=== PATIENT | female | born 1945 | race Caucasian/White ===

== ENCOUNTER → 2024-08-23 11:28 | Outpatient (REF) | payer MEDICARE, OTHER, SELFPAY | LOC: DHCBC/DCA 11:28 | PROVIDERS: ATTENDING PHYSICIAN Internal Medicine; FAMILY PHYSICIAN Family Medicine | DX: I49.3 Ventricular premature depolarization (principal); I10 Essential (primary) hypertension; I35.1 Nonrheumatic aortic (valve) insufficiency; R94.31 Abnormal electrocardiogram [ECG] [EKG] | CPT/HCPCS: 78452; 93017; A9500; J2785 ==

== ENCOUNTER → 2024-09-12 10:00 | Outpatient (REF) | payer MEDICARE, OTHER, SELFPAY | LOC: RCS 10:00 | PROVIDERS: ATTENDING PHYSICIAN Internal Medicine; FAMILY PHYSICIAN Family Medicine | DX: I49.3 Ventricular premature depolarization (principal); I10 Essential (primary) hypertension; I35.1 Nonrheumatic aortic (valve) insufficiency | CPT/HCPCS: 93306 ==

== ENCOUNTER → 2024-09-15 08:08 | Outpatient (REF) | payer MEDICARE, OTHER, SELFPAY | LOC: RCS 08:08 | PROVIDERS: ATTENDING PHYSICIAN Internal Medicine; FAMILY PHYSICIAN Family Medicine | DX: I49.3 Ventricular premature depolarization (principal); I10 Essential (primary) hypertension; I35.1 Nonrheumatic aortic (valve) insufficiency | CPT/HCPCS: 93225; 93226 ==

== ENCOUNTER → 2024-12-26 13:10 | Outpatient (REF) | payer MEDICARE, OTHER, SELFPAY | LOC: DHSLP 13:10 | PROVIDERS: ATTENDING PHYSICIAN Internal Medicine Critical Care Medicine | DX: G47.33 Obstructive sleep apnea (adult) (pediatric) (principal) | CPT/HCPCS: 95800 ==

== ENCOUNTER → 2025-01-20 11:01 | Outpatient (REF) | payer MEDICARE, OTHER, SELFPAY | LOC: HWWDC 11:01 | PROVIDERS: ATTENDING PHYSICIAN Obstetrics & Gynecology; FAMILY PHYSICIAN Family Medicine | DX: Z12.31 Encounter for screening mammogram for malignant neoplasm of breast (principal) | CPT/HCPCS: 77063; 77067 ==

== ENCOUNTER → 2025-01-26 09:29 | Outpatient (REF) | payer MEDICARE, OTHER, SELFPAY | LOC: WDC 09:29 | PROVIDERS: ATTENDING PHYSICIAN Obstetrics & Gynecology; FAMILY PHYSICIAN Family Medicine | DX: R92.8 Other abnormal and inconclusive findings on diagnostic imaging of breast (principal) | CPT/HCPCS: 76642 ==

== ENCOUNTER → 2025-02-03 11:17 | Outpatient (REF) | payer MEDICARE, OTHER, SELFPAY ==
--- NOTE | 2025-02-03 14:47 | OID.BR.INTR ---
[facility] Breast Navigator - Initial
- -
Date of Contact: 02/03/25
Met with patient. Patient given written information on navigator service available at [facility]. Will follow up as needed per protocol.
== END ==
LOC: WDC 11:17
PROVIDERS: ATTENDING PHYSICIAN Obstetrics & Gynecology; FAMILY PHYSICIAN Family Medicine
DX: N63.21 Unspecified lump in the left breast, upper outer quadrant (principal)
CPT/HCPCS: 88305; 19083; A4648

== ENCOUNTER → 2025-02-24 08:38 | Outpatient (REF) | payer MEDICARE, OTHER, SELFPAY | LOC: RAD 08:38 | PROVIDERS: ATTENDING PHYSICIAN Surgery; FAMILY PHYSICIAN Family Medicine | DX: K43.2 Incisional hernia without obstruction or gangrene (principal) | CPT/HCPCS: 74177; Q9967 ==

== ENCOUNTER → 2025-03-09 10:28 | Outpatient (REF) | payer MEDICARE, OTHER, SELFPAY ==
--- NOTE | 2025-03-09 11:58 | CARDSERVDEF ---
Echocardiogram with Definity completed after protocol screening completed. Allergies verified.
Patent IV site: _Left forearm 22 G PC by [facility] IV Team____
IV site flushed with 0.9% NaCl pre and post administration.
Diluted bolus method utilized to enhance visualization of ventricular aguero.
Total volume given: _3___ mL
Patient tolerated all procedures well without complications.
Heplock D/C ed at 1156, site clear, no redness, no edema. Pressure held, no bleeding, 2x2 applied and taped. Pt offers no complaints.
== END ==
LOC: RCS 10:28
PROVIDERS: ATTENDING PHYSICIAN Internal Medicine Hematology & Oncology; FAMILY PHYSICIAN Family Medicine
DX: I26.94 Multiple subsegmental thrombotic pulmonary emboli without acute cor pulmonale (principal); D68.69 Other thrombophilia; C50.112 Malignant neoplasm of central portion of left female breast; R06.2 Wheezing
CPT/HCPCS: 93306; Q9957

== ENCOUNTER → 2025-03-15 10:53 | Outpatient (REF) | payer MEDICARE, OTHER, SELFPAY | LOC: PET 10:53 | PROVIDERS: ATTENDING PHYSICIAN Internal Medicine Hematology & Oncology | DX: C50.112 Malignant neoplasm of central portion of left female breast (principal) | CPT/HCPCS: 78815; A9552 ==

== ENCOUNTER 2025-03-16 06:19 | Day surgery (SDC) | payer MEDICARE, OTHER, SELFPAY ==
[2025-03-16 08:40] VITALS: BMI 25.4
[2025-03-16 08:41] VITALS: BMI 25.4
[2025-03-16 08:42] VITALS: BP 163/85
[2025-03-16] MEDS: NSS 1000 IV (08:45)
[2025-03-16 10:33] VITALS: BP 127/71
[2025-03-16 10:45] VITALS: BP 136/74
--- NOTE | 2025-03-16 10:50 | W.IMMPOSTOP ---
Surgical Immed Post Op Note
-
Primary Surgeon: Fredis
Assisting Surgeon: None
Pre-op Diagnosis: Left breast ca
Post-op Diagnosis: Same
Procedure Performed: Insertion right portacath
Anesthesia Type: TIVA
Specimen / Cultures: None
Estimated Blood Loss: 4cc
Complications: None
one
--- NOTE | 2025-03-16 10:51 | OR.RPT ---
Operative Report
Operative Report
Date of surgery: 03/16/2025
Surgeon: Fredis
Pre-op diagnosis: Left breast carcinoma
Post-Op diagnosis: Same
Procedure: Insertion right Port-A-Cath
The patient is a 79-year-old female with left breast carcinoma who presents for right portacath insertion for the administration of neoadjuvant chemotherapy.
The patient was prepped in the same-day surgical services unit. DVT and antibiotic prophylaxis were provided and she was taken to the operating room. With shoulder roll in place in the supine position, intravenous sedation was delivered. The left
chest and neck were prepped and draped in the usual sterile fashion. All team members were present and performed an appropriate timeout procedure
Tissues were anesthetized with 1% lidocaine plain and the patient was placed in Trendelenburg position. Via Seldinger technique, the left subclavian vein was entered percutaneously. A guidewire was advanced under superior vena cava was noted to be
in good position in the superior vena cava. Inferior to the exit site of the guidewire, a subcutaneous pocket was fashioned sharply and with the cautery.
A low-profile single-lumen port flushed with heparinized saline was placed in the pocket. The catheter was securely attached with the hub and passed to the exit site of the guidewire. This was cut to a length of 19 cm. Under fluoroscopic guidance
the
guidewire tract was dilated. Dilator and sheath were passed over the wire. Dilator and wire were removed and the catheter passed easily into the tear-away sheath which was removed. Good position of the catheter was noted in the superior vena
cava. The catheter aspirated and flushed well. The patient was taken out of Trendelenburg position. Marcaine 0.5% plain was instilled into all tissues. The port was secured to subcutaneous tissue using simple interrupted 3-0 plain through an
anchoring site. Skin was closed using simple interrupted 3-0 plain on subcutaneous tissue and skin was closed with a running subcuticular 4 Monocryl.
Surgical glue and a sterile compressive dressing were applied. All sponge needle and instrument counts were correct and the patient was transferred to same-day surgical services where a stat portable chest x-ray will be obtained. ([id number])
[2025-03-16 11:00] VITALS: BP 130/78
[2025-03-16 11:15] VITALS: BP 140/76
== END 2025-03-16 11:48 | disposition home or self-care (01) ==
LOC: SDS 06:19
PROVIDERS: ATTENDING PHYSICIAN Surgery
DX: C50.912 Malignant neoplasm of unspecified site of left female breast (principal)
CPT/HCPCS: 36561; 71045; 76000; 93005; C1788

== ENCOUNTER → 2025-04-07 10:01 | Outpatient (REF) | payer MEDICARE, OTHER, SELFPAY ==
[2025-04-07 12:02] LABS: Hematocrit 38.9 % (37.0-47.0); Hemoglobin 12.7 g/dL (12.0-16.0); Mean Corp Hgb Conc. 32.6 g/dL (33.0-37.0); Mean Corpuscular Volume 92.6 fL (81.0-99.0); Nucleated Red Blood Cells % 0 %; Platelet Count 172 10^3/uL (130-400); Red Cell Dist. Width 12.7 % (11.5-14.5)
[2025-04-07 13:02] LABS: ALT (SGPT) 47 U/L (0-35); AST (SGOT) 34 U/L (14-36); Albumin 4.4 g/dl (3.5-5.0); Alkaline Phosphatase 88 U/L (38-126); Blood Urea Nitrogen 21 mg/dl (7-17); Calcium 9.1 mg/dl (8.4-10.2); Carbon Dioxide 25 mmol/L (22-30); Chloride 106 mmol/L (98-107); Glucose 139 mg/dl (70-99); Magnesium 2.0 mg/dl (1.6-2.3); Potassium 4.0 mmol/L (3.5-5.1); Sodium 138 mmol/L (135-145); Total Protein 6.8 g/dl (6.3-8.2); eGFR > 60.00
== END ==
LOC: REG 10:01
PROVIDERS: ATTENDING PHYSICIAN Internal Medicine Hematology & Oncology; FAMILY PHYSICIAN Family Medicine
DX: I26.94 Multiple subsegmental thrombotic pulmonary emboli without acute cor pulmonale (principal); D68.69 Other thrombophilia; C50.112 Malignant neoplasm of central portion of left female breast
CPT/HCPCS: 36415; 80053; 83735; 85025

== ENCOUNTER → 2025-04-24 08:50 | Outpatient (REF) | payer MEDICARE, OTHER, SELFPAY ==
[2025-04-24 10:37] LABS: ALT (SGPT) 96 U/L (0-35); AST (SGOT) 48 U/L (14-36); Albumin 3.9 g/dl (3.5-5.0); Alkaline Phosphatase 178 U/L (38-126); Blood Urea Nitrogen 18 mg/dl (7-17); Calcium 8.9 mg/dl (8.4-10.2); Carbon Dioxide 32 mmol/L (22-30); Chloride 103 mmol/L (98-107); Glucose 103 mg/dl (70-99); Magnesium 2.1 mg/dl (1.6-2.3); Potassium 3.0 mmol/L (3.5-5.1); Sodium 140 mmol/L (135-145); Total Protein 6.1 g/dl (6.3-8.2); eGFR > 60.00
[2025-04-24 11:07] LABS: Hematocrit 32.0 % (37.0-47.0); Hemoglobin 10.5 g/dL (12.0-16.0); Mean Corp Hgb Conc. 32.8 g/dL (33.0-37.0); Mean Corpuscular Volume 91.2 fL (81.0-99.0); Nucleated Red Blood Cells % 0 %; Platelet Count 108 10^3/uL (130-400); Red Cell Dist. Width 13.5 % (11.5-14.5)
== END ==
LOC: REG 08:50
PROVIDERS: ATTENDING PHYSICIAN Internal Medicine Hematology & Oncology; FAMILY PHYSICIAN Family Medicine
DX: I26.94 Multiple subsegmental thrombotic pulmonary emboli without acute cor pulmonale (principal); D68.69 Other thrombophilia; C50.112 Malignant neoplasm of central portion of left female breast
CPT/HCPCS: 36415; 80053; 83735; 85025

== ENCOUNTER → 2025-05-01 08:35 | Outpatient (REF) | payer MEDICARE, OTHER, SELFPAY ==
[2025-05-01 09:29] LABS: Hematocrit 32.5 % (37.0-47.0); Hemoglobin 10.8 g/dL (12.0-16.0); Mean Corp Hgb Conc. 33.2 g/dL (33.0-37.0); Mean Corpuscular Volume 90.8 fL (81.0-99.0); Nucleated Red Blood Cells % 0 %; Platelet Count 244 10^3/uL (130-400); Red Cell Dist. Width 13.2 % (11.5-14.5)
[2025-05-01 10:17] LABS: ALT (SGPT) 92 U/L (0-35); AST (SGOT) 34 U/L (14-36); Albumin 4.4 g/dl (3.5-5.0); Alkaline Phosphatase 114 U/L (38-126); Blood Urea Nitrogen 20 mg/dl (7-17); Calcium 9.3 mg/dl (8.4-10.2); Carbon Dioxide 27 mmol/L (22-30); Chloride 102 mmol/L (98-107); Glucose 114 mg/dl (70-99); Magnesium 1.9 mg/dl (1.6-2.3); Potassium 3.8 mmol/L (3.5-5.1); Sodium 137 mmol/L (135-145); Total Protein 6.6 g/dl (6.3-8.2); eGFR > 60.00
== END ==
LOC: REG 08:35
PROVIDERS: ATTENDING PHYSICIAN Internal Medicine Hematology & Oncology; FAMILY PHYSICIAN Family Medicine
DX: I26.94 Multiple subsegmental thrombotic pulmonary emboli without acute cor pulmonale (principal); D68.69 Other thrombophilia; C50.112 Malignant neoplasm of central portion of left female breast
CPT/HCPCS: 36415; 80053; 83735; 85025

== ENCOUNTER → 2025-05-16 12:10 | Outpatient (REF) | payer MEDICARE, OTHER, SELFPAY ==
[2025-05-16 13:11] LABS: Hematocrit 31.7 % (37.0-47.0); Hemoglobin 10.3 g/dL (12.0-16.0); Mean Corp Hgb Conc. 32.5 g/dL (33.0-37.0); Mean Corpuscular Volume 94.1 fL (81.0-99.0); Nucleated Red Blood Cells % 0 %; Platelet Count 105 10^3/uL (130-400); Red Cell Dist. Width 16.5 % (11.5-14.5)
[2025-05-16 13:56] LABS: ALT (SGPT) 68 U/L (0-35); AST (SGOT) 42 U/L (14-36); Albumin 4.2 g/dl (3.5-5.0); Alkaline Phosphatase 213 U/L (38-126); Blood Urea Nitrogen 16 mg/dl (7-17); Calcium 8.8 mg/dl (8.4-10.2); Carbon Dioxide 30 mmol/L (22-30); Chloride 102 mmol/L (98-107); Glucose 183 mg/dl (70-99); Magnesium 1.9 mg/dl (1.6-2.3); Potassium 2.8 mmol/L (3.5-5.1); Sodium 139 mmol/L (135-145); Total Protein 6.2 g/dl (6.3-8.2); eGFR > 60.00
== END ==
LOC: REG 12:10
PROVIDERS: ATTENDING PHYSICIAN Internal Medicine Hematology & Oncology; FAMILY PHYSICIAN Family Medicine
DX: I26.94 Multiple subsegmental thrombotic pulmonary emboli without acute cor pulmonale (principal); D68.69 Other thrombophilia; C50.112 Malignant neoplasm of central portion of left female breast; K31.84 Gastroparesis
CPT/HCPCS: 36415; 80053; 83735; 85025

== ENCOUNTER → 2025-05-23 12:25 | Outpatient (REF) | payer MEDICARE, OTHER, SELFPAY ==
[2025-05-23 13:16] LABS: Hematocrit 33.0 % (37.0-47.0); Hemoglobin 11.0 g/dL (12.0-16.0); Mean Corp Hgb Conc. 33.3 g/dL (33.0-37.0); Mean Corpuscular Volume 93.0 fL (81.0-99.0); Nucleated Red Blood Cells % 0 %; Platelet Count 215 10^3/uL (130-400); Red Cell Dist. Width 16.1 % (11.5-14.5)
[2025-05-23 14:12] LABS: ALT (SGPT) 53 U/L (0-35); AST (SGOT) 30 U/L (14-36); Albumin 4.6 g/dl (3.5-5.0); Alkaline Phosphatase 130 U/L (38-126); Blood Urea Nitrogen 18 mg/dl (7-17); Calcium 9.4 mg/dl (8.4-10.2); Carbon Dioxide 27 mmol/L (22-30); Chloride 103 mmol/L (98-107); Glucose 140 mg/dl (70-99); Magnesium 1.9 mg/dl (1.6-2.3); Potassium 3.4 mmol/L (3.5-5.1); Sodium 136 mmol/L (135-145); Total Protein 6.7 g/dl (6.3-8.2); eGFR > 60.00
== END ==
LOC: REG 12:25
PROVIDERS: ATTENDING PHYSICIAN Internal Medicine Hematology & Oncology; FAMILY PHYSICIAN Family Medicine
DX: I26.94 Multiple subsegmental thrombotic pulmonary emboli without acute cor pulmonale (principal); D68.69 Other thrombophilia; C50.112 Malignant neoplasm of central portion of left female breast
CPT/HCPCS: 36415; 80053; 83735; 85025

== ENCOUNTER → 2025-06-16 09:06 | Outpatient (REF) | payer MEDICARE, OTHER, SELFPAY ==
[2025-06-16 10:01] LABS: Hematocrit 33.5 % (37.0-47.0); Hemoglobin 11.3 g/dL (12.0-16.0); Mean Corp Hgb Conc. 33.7 g/dL (33.0-37.0); Mean Corpuscular Volume 98.0 fL (81.0-99.0); Nucleated Red Blood Cells % 0 %; Platelet Count 214 10^3/uL (130-400); Red Cell Dist. Width 16.4 % (11.5-14.5)
[2025-06-16 10:21] LABS: ALT (SGPT) 43 U/L (0-35); AST (SGOT) 28 U/L (14-36); Albumin 4.3 g/dl (3.5-5.0); Alkaline Phosphatase 134 U/L (38-126); Blood Urea Nitrogen 16 mg/dl (7-17); Calcium 9.3 mg/dl (8.4-10.2); Carbon Dioxide 28 mmol/L (22-30); Chloride 102 mmol/L (98-107); Glucose 211 mg/dl (70-99); Magnesium 1.8 mg/dl (1.6-2.3); Potassium 3.1 mmol/L (3.5-5.1); Sodium 138 mmol/L (135-145); Total Protein 6.7 g/dl (6.3-8.2); eGFR > 60.00
== END ==
LOC: REG 09:06
PROVIDERS: ATTENDING PHYSICIAN Internal Medicine Hematology & Oncology; FAMILY PHYSICIAN Family Medicine
DX: I26.94 Multiple subsegmental thrombotic pulmonary emboli without acute cor pulmonale (principal); D68.69 Other thrombophilia; C50.112 Malignant neoplasm of central portion of left female breast
CPT/HCPCS: 36415; 80053; 83735; 85025

== ENCOUNTER → 2025-06-23 11:12 | Outpatient (REF) | payer MEDICARE, OTHER, SELFPAY ==
[2025-06-23 11:54] LABS: Hematocrit 35.8 % (37.0-47.0); Hemoglobin 11.8 g/dL (12.0-16.0); Mean Corp Hgb Conc. 33.0 g/dL (33.0-37.0); Mean Corpuscular Volume 98.6 fL (81.0-99.0); Nucleated Red Blood Cells % 0 %; Platelet Count 199 10^3/uL (130-400); Red Cell Dist. Width 15.2 % (11.5-14.5)
[2025-06-23 12:20] LABS: Albumin 4.6 g/dl (3.5-5.0)
[2025-06-23 12:40] LABS: ALT (SGPT) 42 U/L (0-35); AST (SGOT) 28 U/L (14-36); Alkaline Phosphatase 108 U/L (38-126); Blood Urea Nitrogen 17 mg/dl (7-17); Calcium 9.3 mg/dl (8.4-10.2); Carbon Dioxide 25 mmol/L (22-30); Chloride 105 mmol/L (98-107); Glucose 138 mg/dl (70-99); Magnesium 1.8 mg/dl (1.6-2.3); Potassium 3.8 mmol/L (3.5-5.1); Sodium 138 mmol/L (135-145); Total Protein 7.0 g/dl (6.3-8.2); eGFR > 60.00
== END ==
LOC: REG 11:12
PROVIDERS: ATTENDING PHYSICIAN Internal Medicine Hematology & Oncology; FAMILY PHYSICIAN Family Medicine
DX: I26.94 Multiple subsegmental thrombotic pulmonary emboli without acute cor pulmonale (principal); D68.69 Other thrombophilia; C50.112 Malignant neoplasm of central portion of left female breast
CPT/HCPCS: 36415; 80053; 83735; 85025

== ENCOUNTER → 2025-07-11 09:22 | Outpatient (REF) | payer MEDICARE, OTHER, SELFPAY ==
[2025-07-11 10:51] LABS: Hematocrit 35.6 % (37.0-47.0); Hemoglobin 11.4 g/dL (12.0-16.0); Mean Corp Hgb Conc. 32.0 g/dL (33.0-37.0); Mean Corpuscular Volume 102.0 fL (81.0-99.0); Nucleated Red Blood Cells % 0 %; Platelet Count 127 10^3/uL (130-400); Red Cell Dist. Width 14.7 % (11.5-14.5)
[2025-07-11 12:04] LABS: ALT (SGPT) 43 U/L (0-35); AST (SGOT) 29 U/L (14-36); Albumin 4.3 g/dl (3.5-5.0); Alkaline Phosphatase 170 U/L (38-126); Blood Urea Nitrogen 15 mg/dl (7-17); Calcium 9.1 mg/dl (8.4-10.2); Carbon Dioxide 32 mmol/L (22-30); Chloride 100 mmol/L (98-107); Glucose 141 mg/dl (70-99); Magnesium 2.1 mg/dl (1.6-2.3); Potassium 2.7 mmol/L (3.5-5.1); Sodium 138 mmol/L (135-145); Total Protein 6.7 g/dl (6.3-8.2); eGFR > 60.00
== END ==
LOC: REG 09:22
PROVIDERS: ATTENDING PHYSICIAN Internal Medicine Hematology & Oncology; FAMILY PHYSICIAN Family Medicine
DX: I26.94 Multiple subsegmental thrombotic pulmonary emboli without acute cor pulmonale (principal); D68.69 Other thrombophilia; C50.112 Malignant neoplasm of central portion of left female breast
CPT/HCPCS: 36415; 80053; 83735; 85025

== ENCOUNTER → 2025-07-12 07:24 | Outpatient (REF) | payer MEDICARE, OTHER, SELFPAY | LOC: RCS 07:24 | PROVIDERS: ATTENDING PHYSICIAN Internal Medicine Hematology & Oncology; FAMILY PHYSICIAN Family Medicine | DX: C50.112 Malignant neoplasm of central portion of left female breast (principal) | CPT/HCPCS: 93306; Q9950 ==

== ENCOUNTER → 2025-07-18 10:34 | Outpatient (REF) | payer MEDICARE, OTHER, SELFPAY ==
[2025-07-18 11:19] LABS: Hematocrit 36.4 % (37.0-47.0); Hemoglobin 12.2 g/dL (12.0-16.0); Mean Corp Hgb Conc. 33.5 g/dL (33.0-37.0); Mean Corpuscular Volume 96.8 fL (81.0-99.0); Nucleated Red Blood Cells % 0 %; Platelet Count 216 10^3/uL (130-400); Red Cell Dist. Width 13.8 % (11.5-14.5)
[2025-07-18 11:51] LABS: ALT (SGPT) 51 U/L (0-35); AST (SGOT) 28 U/L (14-36); Albumin 4.6 g/dl (3.5-5.0); Alkaline Phosphatase 127 U/L (38-126); Blood Urea Nitrogen 27 mg/dl (7-17); Calcium 9.6 mg/dl (8.4-10.2); Carbon Dioxide 27 mmol/L (22-30); Chloride 98 mmol/L (98-107); Glucose 185 mg/dl (70-99); Magnesium 1.8 mg/dl (1.6-2.3); Potassium 3.3 mmol/L (3.5-5.1); Sodium 133 mmol/L (135-145); Total Protein 7.1 g/dl (6.3-8.2); eGFR > 60.00
== END ==
LOC: REG 10:34
PROVIDERS: ATTENDING PHYSICIAN Internal Medicine Hematology & Oncology; FAMILY PHYSICIAN Family Medicine
DX: C50.112 Malignant neoplasm of central portion of left female breast (principal); D68.69 Other thrombophilia; I26.94 Multiple subsegmental thrombotic pulmonary emboli without acute cor pulmonale
CPT/HCPCS: 36415; 80053; 83735; 85025

== ENCOUNTER → 2025-08-01 13:28 | Outpatient (REF) | payer MEDICARE, OTHER, SELFPAY ==
[2025-08-01 15:13] LABS: Hematocrit 34.0 % (37.0-47.0); Hemoglobin 11.5 g/dL (12.0-16.0); Mean Corp Hgb Conc. 33.8 g/dL (33.0-37.0); Mean Corpuscular Volume 96.6 fL (81.0-99.0); Nucleated Red Blood Cells % 0 %; Platelet Count 252 10^3/uL (130-400); Red Cell Dist. Width 13.4 % (11.5-14.5)
[2025-08-01 15:42] LABS: ALT (SGPT) 40 U/L (0-35); AST (SGOT) 26 U/L (14-36); Albumin 4.4 g/dl (3.5-5.0); Alkaline Phosphatase 108 U/L (38-126); Blood Urea Nitrogen 25 mg/dl (7-17); Calcium 9.1 mg/dl (8.4-10.2); Carbon Dioxide 24 mmol/L (22-30); Chloride 103 mmol/L (98-107); Glucose 175 mg/dl (70-99); Magnesium 1.8 mg/dl (1.6-2.3); Potassium 3.1 mmol/L (3.5-5.1); Sodium 139 mmol/L (135-145); Total Protein 6.8 g/dl (6.3-8.2); eGFR > 60.00
== END ==
LOC: REG 13:28
PROVIDERS: ATTENDING PHYSICIAN Internal Medicine Hematology & Oncology
DX: I26.94 Multiple subsegmental thrombotic pulmonary emboli without acute cor pulmonale (principal); D68.69 Other thrombophilia; C50.112 Malignant neoplasm of central portion of left female breast
CPT/HCPCS: 36415; 80053; 83735; 85025

== ENCOUNTER → 2025-08-14 10:36 | Outpatient (REF) | payer MEDICARE, OTHER, SELFPAY ==
[2025-08-14 11:08] LABS: Hematocrit 34.7 % (37.0-47.0); Hemoglobin 11.3 g/dL (12.0-16.0); Mean Corp Hgb Conc. 32.6 g/dL (33.0-37.0); Mean Corpuscular Volume 100.0 fL (81.0-99.0); Nucleated Red Blood Cells % 0 %; Platelet Count 149 10^3/uL (130-400); Red Cell Dist. Width 13.2 % (11.5-14.5)
[2025-08-14 12:01] LABS: ALT (SGPT) 58 U/L (0-35); AST (SGOT) 34 U/L (14-36); Albumin 4.1 g/dl (3.5-5.0); Alkaline Phosphatase 79 U/L (38-126); Blood Urea Nitrogen 16 mg/dl (7-17); Calcium 8.9 mg/dl (8.4-10.2); Carbon Dioxide 26 mmol/L (22-30); Chloride 106 mmol/L (98-107); Glucose 121 mg/dl (70-99); Magnesium 1.6 mg/dl (1.6-2.3); Potassium 3.0 mmol/L (3.5-5.1); Sodium 137 mmol/L (135-145); Total Protein 6.6 g/dl (6.3-8.2); eGFR > 60.00
== END ==
LOC: REG 10:36
PROVIDERS: ATTENDING PHYSICIAN Internal Medicine Hematology & Oncology; FAMILY PHYSICIAN Family Medicine
DX: I26.94 Multiple subsegmental thrombotic pulmonary emboli without acute cor pulmonale (principal)
CPT/HCPCS: 36415; 80053; 83735; 85025

== ENCOUNTER → 2025-08-16 11:52 | Outpatient (REF) | payer MEDICARE, OTHER, SELFPAY | LOC: MRI 3T 11:52 | PROVIDERS: ATTENDING PHYSICIAN Surgery; FAMILY PHYSICIAN Family Medicine | DX: C50.919 Malignant neoplasm of unspecified site of unspecified female breast (principal) | CPT/HCPCS: 77049; A9585 ==

== ENCOUNTER → 2025-08-21 11:49 | Outpatient (REF) | payer MEDICARE, OTHER, SELFPAY ==
[2025-08-21 13:12] LABS: Hematocrit 34.7 % (37.0-47.0); Hemoglobin 11.5 g/dL (12.0-16.0); Mean Corp Hgb Conc. 33.1 g/dL (33.0-37.0); Mean Corpuscular Volume 96.7 fL (81.0-99.0); Platelet Count 175 10^3/uL (130-400); Red Cell Dist. Width 13.5 % (11.5-14.5)
[2025-08-21 13:51] LABS: ALT (SGPT) 56 U/L (0-35); AST (SGOT) 35 U/L (14-36); Albumin 4.1 g/dl (3.5-5.0); Alkaline Phosphatase 189 U/L (38-126); Blood Urea Nitrogen 15 mg/dl (7-17); Calcium 9.8 mg/dl (8.4-10.2); Carbon Dioxide 30 mmol/L (22-30); Chloride 102 mmol/L (98-107); Glucose 94 mg/dl (70-99); Magnesium 1.6 mg/dl (1.6-2.3); Potassium 3.4 mmol/L (3.5-5.1); Sodium 137 mmol/L (135-145); Total Protein 6.6 g/dl (6.3-8.2); eGFR > 60.00
[2025-08-21 14:13] LABS: Absolute Neutrophils -Man Diff 20.7 10^3/uL (1.4-6.5); Platelets Checked Yes
[2025-08-21 14:14] LABS: Hypochromasia 1+; Normal RBC Morphology No; Polychromasia 1+; Total Cells Counted 100
== END ==
LOC: REG 11:49
PROVIDERS: ATTENDING PHYSICIAN Internal Medicine Hematology & Oncology; FAMILY PHYSICIAN Family Medicine
DX: I26.94 Multiple subsegmental thrombotic pulmonary emboli without acute cor pulmonale (principal); D68.69 Other thrombophilia; C50.112 Malignant neoplasm of central portion of left female breast
CPT/HCPCS: 36415; 80053; 83735; 85025

== ENCOUNTER → 2025-09-12 12:17 | Outpatient (REF) | payer MEDICARE, OTHER, SELFPAY ==
[2025-09-12 12:49] LABS: Hematocrit 35.4 % (37.0-47.0); Hemoglobin 11.8 g/dL (12.0-16.0); Mean Corp Hgb Conc. 33.3 g/dL (33.0-37.0); Mean Corpuscular Volume 95.9 fL (81.0-99.0); Nucleated Red Blood Cells % 0 %; Platelet Count 173 10^3/uL (130-400); Red Cell Dist. Width 13.7 % (11.5-14.5)
[2025-09-12 13:16] LABS: ALT (SGPT) 54 U/L (0-35); AST (SGOT) 36 U/L (14-36); Albumin 4.2 g/dl (3.5-5.0); Alkaline Phosphatase 126 U/L (38-126); Blood Urea Nitrogen 22 mg/dl (7-17); Calcium 9.3 mg/dl (8.4-10.2); Carbon Dioxide 27 mmol/L (22-30); Chloride 102 mmol/L (98-107); Glucose 161 mg/dl (70-99); Magnesium 1.7 mg/dl (1.6-2.3); Potassium 3.3 mmol/L (3.5-5.1); Sodium 136 mmol/L (135-145); Total Protein 6.8 g/dl (6.3-8.2); eGFR > 60.00
== END ==
LOC: REG 12:17
PROVIDERS: ATTENDING PHYSICIAN Internal Medicine Hematology & Oncology; FAMILY PHYSICIAN Family Medicine
DX: I26.94 Multiple subsegmental thrombotic pulmonary emboli without acute cor pulmonale (principal); D68.69 Other thrombophilia; C50.112 Malignant neoplasm of central portion of left female breast
CPT/HCPCS: 36415; 80053; 83735; 85025